=== PATIENT | male | born 1950 | race Caucasian/White ===

== ENCOUNTER 2018-07-21 08:59 | Emergency (ER) | payer OTHER ==
--- NOTE | 2018-07-21 10:07 | RAD ---
EXAM DESCRIPTION: Ankle,Left 3 Views CLINICAL HISTORY: 68 years Male, trauma deformity COMPARISON: None. FINDINGS: Three views of the left ankle show an obliquely oriented fracture distal third left tibial diaphysis with up to one shaft width lateral displacement of the distal fracture fragment. No fibular fracture is seen. Ankle joint is anatomically aligned. The tibiotalar joint space and talar dome are well-maintained. IMPRESSION: Displaced left tibial diaphyseal fracture as detailed above. Electronically signed by: El Carmichael MD 07/21/2018 10:06 AM CDT
--- NOTE | 2018-07-21 10:08 | RAD ---
EXAM DESCRIPTION: Knee,Left 2 or More Views CLINICAL HISTORY: 68 years Male, fall with deformity COMPARISON: None. FINDINGS: Two views of the left knee show comminuted fractures involving the left fibular neck extending into the proximal third of the left fibular diaphysis. There is up to one shaft width lateral displacement of the major distal fracture fragment. No tibial plateau fracture. No joint effusion. The femoral condyles and patella are intact. Vascular calcifications are noted. IMPRESSION: Comminuted proximal left fibular fracture with displacement as detailed above. Electronically signed by: El Carmichael MD 07/21/2018 10:07 AM CDT
--- NOTE | 2018-07-21 10:09 | RAD ---
EXAM DESCRIPTION: Tibia/Fibula,Left CLINICAL HISTORY: 68 years Male, fracture COMPARISON: None. FINDINGS: Two views of the left leg show an obliquely oriented fracture distal third left tibial diaphysis with up to one shaft width lateral displacement of the distal fracture fragment. There is a comminuted fracture involving the proximal third of the left fibular diaphysis with up to one half shaft width lateral displacement of the major distal fracture fragment. No tibial plateau fracture is identified. No radio opaque foreign body or soft tissue gas. IMPRESSION: Displaced tibial and fibular fractures as detailed above. Orthopedic consultation recommended. Electronically signed by: El Carmichael MD 07/21/2018 10:08 AM CDT
[2018-07-21] MEDS ORDERED: cefTRIAXone SODIUM 1 GM in SODIUM CHL 0.9% 50ML MIN-BAG+ 50 ML IVPB ONE (10:18)
--- NOTE | 2018-07-21 10:24 | ED.PDOC ---
History of Present Illness - General Chief Complaint: Lower Extremity Injury Time Seen by Provider: 07/21/18 09:11 Source: patient Exam Limitations: no limitations - History of Present Illness Initial Comments: the patient is 68-year-old male presenting to the emergency room after a fall this morning. He simply tripped and fell. He has significant deformity over the proximal fibula and distal tibia. He does appear to be neurovascularly preserved. No other injuries. He has a small area of weeping to the anterior medial roman at about the level of the fracture however he also has old scabs over this area from abrading it against something a few days ago. Examination of the small weeping area reveals that it does not appear to extend into deeper tissue. This is most likely the result of knocking a scab off rather than a compound fracture puncture site. I cannot say that with 100% certainty but this appears to be the case. The area is cleaned. Pulses are palpable. He is able to wiggle his toes. Movement at the ankle of course does cause pain. No pain around the hip. No evidence of any other injury. No syncope or near syncope. He reports high blood pressure but does not take any blood thinners. Timing/Duration: 1/2 hour Severity: moderate Improving Factors: immobilization Worsening Factors: movement Associated Symptoms: denies symptoms Allergies/Adverse Reactions: Allergies NO KNOWN ALLERGY Allergy (Verified 07/21/18 09:12) Review of Systems - Review of Systems Constitutional: States: no symptoms reported EENTM: States: no symptoms reported Respiratory: States: no symptoms reported Cardiology: States: no symptoms reported Gastrointestinal/Abdominal: States: no symptoms reported Genitourinary: States: no symptoms reported Musculoskeletal: States: see HPI Skin: States: see HPI Neurological: States: no symptoms reported Endocrine: States: no symptoms reported All other Systems: No Change from Baseline Past Medical History (General) - Patient Medical History Hx Seizures: No Hx Stroke: No Hx Dementia: No Hx Asthma: No Hx of COPD: No Hx Cardiac Disorders: No Hx Congestive Heart Failure: No Hx Pacemaker: No Hx Hypertension: Yes Hx Thyroid Disease: No Hx Diabetes: No Hx Gastroesophageal Reflux: No Hx Renal Disease: No Hx Cancer: Yes - skin Hx of HIV: No Hx Hepatitis C: No Hx MRSA: No Surgical History: appendectomy - Vaccination History Hx Tetanus, Diphtheria Vaccination: No Hx Influenza Vaccination: No Hx Pneumococcal Vaccination: No Immunizations Up to Date: No - Social History Hx Tobacco Use: No Hx Chewing Tobacco Use: No Hx Alcohol Use: No Hx Substance Use: No Hx Substance Use Treatment: No Hx Depression: No Feels Threatened In Home Enviroment: No Feels Threatened In a Relationship: No Hx Physical Abuse: No Hx Emotional Abuse: No Hx Suspected Abuse: No - Female History Patient is a Female of Child Bearing Age (10 -59 yrs old): No Patient : No Family Medical History - Family History Mother Family History: Unknown Physical Exam - Physical Exam General Appearance: Alert, No apparent distress Eye Exam: bilateral normal Ears, Nose, Throat: hearing grossly normal Neck: full range of motion Respiratory: lungs clear, no respiratory distress, no accessory muscle use Cardiovascular/Chest: normal peripheral pulses, regular rate, rhythm, no edema Peripheral Pulses: radial,right: 2+, radial,left: 2+, dorsalis pedis,right: 2+, dorsalis pedis,left: 2+, posterior tibialis,right: 2+, posterior tibialis,left: 2+ Gastrointestinal/Abdominal: non tender, soft Rectal Exam: deferred Extremity: no calf tenderness, normal capillary refill, swelling, other - see history of present illness Neurologic: cause analyst II-XII nml as tested, alert, normal mood/affect, oriented x 3 Skin Exam: normal color Comments: Vital Signs - 24 hr 07/21/18 07/21/18 08:59 09:59 Temperature 98.5 F 98 F Pulse Rate [ 93 H 73 Apical] Respiratory 18 18 Rate Blood Pressure 125/85 119/75 [Left Arm] O2 Sat by Pulse 98 96 Oximetry Progress - Progress Progress: 07/21/18 10:26 the patient is a 68-year-old male presenting to the emergency room secondary to a distal third tibia fracture and proximal spiral fibula fracture on the left after a fall. He does have a mild weeping abrasion over the anterior part of the roman at the level of the fracture site however I do not believe that this is a compound fracture rather that he scraped off a scab that had previously been present at that site. The area has been cleaned. The patient has been placed in a posterior splint. We're going to go ahead and give a dose of Rocephin empirically anyway. He does appear to be neurovascularly intact at this time. We are currently awaiting an orthopedic call back for disposition. 07/21/18 11:20 orthopedics is unable to perform the repair here secondary to lack of hardware.the patient will be transferred to [facility]. Dr. Olivas has accepted. he is neurovascularly intact at this time. We are going to add a sugar tong in addition to the posterior splint as the patient is wanting to go by private vehicle which is reasonable at this time. He has to remain nothing by mouth for now. He is to go directly to the [facility] for direct admit. - Results/Orders Results/Orders: Laboratory Results - last 24 hr 07/21/18 07/21/18 07/21/18 09:15 09:16 09:16 WBC 7.8 RBC 4.69 L Hgb 15.6 Hct 45.2 MCV 96.5 H MCH 33.2 H MCHC 34.5 RDW 13.4 Plt Count 260 MPV 8.2 Absolute Neuts (auto) 5.00 Absolute Lymphs (auto) 1.30 Absolute Monos (auto) 1.20 H Absolute Eos (auto) 0.20 Absolute Basos (auto) 0.10 Neutrophils % 64.0 Lymphocytes % 16.7 L Monocytes % 15.9 H Eosinophils % 2.6 Basophils % 0.8 PT 9.6 INR 0.96 PTT (SP) 30.6 Sodium 135 Potassium 4.2 Chloride 102 Carbon Dioxide 23 Anion Gap 14.2 BUN 15 Creatinine 1.25 BUN/Creatinine Ratio 12.0 Random Glucose 123 H Serum Osmolality 272.3 L Calcium 9.2 Total Bilirubin 1.4 H AST 25 ALT 20 Alkaline Phosphatase 55 Serum Total Protein 6.8 Albumin 4.0 Globulin 2.8 Albumin/Globulin Ratio 1.4 x-ray of the left knee, tib-fib and ankle show spiral fractures of the distal third of the tibia with significant displacement. There is also spiral fracture of the proximal fibula with significant displacement. - EKG/XRAY/CT CT Ordered: No CT Interpretation Call Back: No Departure - Departure Clinical Impression: Tibia/fibula fracture, shaft Qualifiers: Encounter type: initial encounter Fracture type: closed Laterality: left Qualified Code(s): S82.202A - Unspecified fracture of shaft of left tibia, initial encounter for closed fracture Disposition: Transfer to Hospital Condition: Fair Departure Forms: ED Discharge - Pt. Copy, Patient Portal Self Enrollment Instructions: DI for Trauma, DI for Leg Pain Referrals: Bobby Herron MD [Primary Care Provider] - 1-2 Weeks Transfer to Outside Facility - Transfer Information Accepting Provider:: dr olvias Accepting Facility: [facility] Reason for Transfer: required specialist not available
[2018-07-21] MEDS ORDERED: SODIUM CHL 0.9% 50ML MIN-BAG+ 50 ML IVPB ONE (10:27)
[2018-07-21] MEDS ORDERED: cefTRIAXone SODIUM 1 GM VIAL ONE (10:27)
[2018-07-21 11:53] VITALS: BP 135/70; TEMP 98; O2SAT 98
== END 2018-07-21 12:12 | disposition short-term general hospital (02) ==
LOC: ER 08:59
DX: S82.242A Displaced spiral fracture of shaft of left tibia, initial encounter for closed fracture (principal); S82.442A Displaced spiral fracture of shaft of left fibula, initial encounter for closed fracture; S80.812A Abrasion, left lower leg, initial encounter; I10 Essential (primary) hypertension; Z85.828 Personal history of other malignant neoplasm of skin; W01.0XXA Fall on same level from slipping, tripping and stumbling without subsequent striking against object, initial encounter; Y92.009 Unspecified place in unspecified non-institutional (private) residence as the place of occurrence of the external cause
CPT/HCPCS: 73560; 73590; 73610; 80053; 85025; 85610; 85730; J0696; J7050

== ENCOUNTER 2019-02-01 18:52 | Emergency (ER) | payer MEDICARE, OTHER ==
[2019-02-01 19:15] VITALS: TEMP 97.8; O2SAT 98
[2019-02-01] MEDS ORDERED: LIDOCAINE 1% 10 ML VIAL INJ ONE (19:54)
--- NOTE | 2019-02-01 19:54 | ED.PDOC ---
History of Present Illness - General Chief Complaint: Skin/Abrasion/Tear Stated Complaint: Bleeding from skin cancer removal site right leg Time Seen by Provider: 02/01/19 19:53 - History of Present Illness Initial Comments: Humberto Lowe 68 y/o male with recent Mohs Surgery on right leg for Basal skin CA in [place] came to ER with unstoppable bleeding when he came home after surgery. Timing/Duration: just prior to arrival Severity: moderate Location: extremities - right leg Worsening Factors: nothing Associated Symptoms: denies symptoms Allergies/Adverse Reactions: Allergies NO KNOWN ALLERGY Allergy (Verified 07/21/18 09:12) Review of Systems - Review of Systems Constitutional: States: no symptoms reported EENTM: States: no symptoms reported Respiratory: States: no symptoms reported Cardiology: States: no symptoms reported Musculoskeletal: States: no symptoms reported Skin: States: see HPI All other Systems: Reviewed and Negative, No Change from Baseline Past Medical History (General) - Patient Medical History Hx Seizures: No Hx Stroke: No Hx Dementia: No Hx Asthma: No Hx of COPD: No Hx Cardiac Disorders: Yes - AL with stent Hx Congestive Heart Failure: No Hx Pacemaker: No Hx Hypertension: Yes Hx Thyroid Disease: No Hx Diabetes: No Hx Gastroesophageal Reflux: No Hx Renal Disease: No Hx Cancer: Yes - skin Hx of HIV: No Hx Hepatitis C: No Hx MRSA: No Surgical History: other - Vaccination History Hx Tetanus, Diphtheria Vaccination: No Hx Influenza Vaccination: No Hx Pneumococcal Vaccination: No Immunizations Up to Date: Yes - Social History Hx Tobacco Use: No Hx Chewing Tobacco Use: No Hx Alcohol Use: Yes Hx Substance Use: No Hx Substance Use Treatment: No Hx Depression: No Hx Physical Abuse: No Hx Emotional Abuse: No Hx Suspected Abuse: No - Female History Patient : No Family Medical History - Family History Mother Family History: Unknown Physical Exam - Physical Exam General Appearance: Alert, Comfortable, No apparent distress Eyes, Ears, Nose, Throat Exam: normal ENT inspection Neck: supple, normal inspection Cardiovascular/Chest: regular rate, rhythm, no murmur Respiratory: lungs clear, normal breath sounds Gastrointestinal/Abdominal: non tender, soft Extremity: no pedal edema, no calf tenderness Neurologic: alert, oriented x 3 Skin Exam: warm/dry, normal color Skin Problem Location: lower extremities - right leg Skin Character: other - post procedure bleeding Progress - Progress Progress: 02/01/19 20:32 Vital Signs - 8 hr 02/01/19 02/01/19 19:09 19:10 Temperature 97.8 F Pulse Rate [ 80 80 monitor] Respiratory 20 20 Rate Blood Pressure 159/116 [Left Arm] O2 Sat by Pulse 98 Oximetry Procedures - Laceration/Wound Repair Right Calf Wound Length (cm): 0 Wound's Depth, Shape: superficial Wound Explored: clean Irrigated w/ Saline (cc's): 30 Anesthesia: Lidocaine w/ Epi Volume Anesthetic (cc's): 3 Wound Repaired With: sutures Number of Sutures: 2 - suture/ligation of bleeders done with Vicryl 5-O Layer Closure?: No Sterile Dressing Applied?: Yes Departure - Departure Clinical Impression: Postoperative hemorrhage of skin following dermatologic procedure Time of Disposition: 20:36 Disposition: Discharge to Home or Self Care Condition: Fair Departure Forms: ED Discharge - Pt. Copy, Patient Portal Self Enrollment Instructions: Wound Care (DC), Wound Care Additional Instructions: Return to ER as needed;Remove dressing 05 Feb 2019;Continue with all home medications
[2019-02-01] MEDS ORDERED: LIDOCAINE 1% W/ EPINEPHRINE 20 ML VIAL INJ ONE (19:56)
[2019-02-01] MEDS ORDERED: NEOMYCIN-BACITRACIN-POLYMYXIN 0.9 GM UD TOP ONE (20:16)
[2019-02-01 20:44] VITALS: BP 131/90
== END 2019-02-01 20:44 | disposition home or self-care (01) ==
LOC: ER 18:52
DX: L76.21 Postprocedural hemorrhage of skin and subcutaneous tissue following a dermatologic procedure (principal); I25.2 Old myocardial infarction; I10 Essential (primary) hypertension; Y83.8 Other surgical procedures as the cause of abnormal reaction of the patient, or of later complication, without mention of misadventure at the time of the procedure; Z85.828 Personal history of other malignant neoplasm of skin; Z95.5 Presence of coronary angioplasty implant and graft